=== PATIENT | male | born 1960 | race Two or more races ===

== ENCOUNTER 2024-05-21 19:42 | Inpatient (IN) | payer MEDICAID ==
[~2024-05-21] VITALS: Ht 172.7 cm; Wt 76.6 kg
--- NOTE | 2024-05-21 20:03 | ED.PDOC ---
HPI Comments 63-year-old male came in the emergency room due to chest pains. See history of hypertension, diabetes, dyslipidemia. States for the past 3 days, has been having intermittent episodes of substernal chest pain, sharp, nonradiating, 8/10 intensity.Progressively worsened today. Denies any shortness of breath, nausea or vomiting. Self medicated with aspirin 325 offered no relief of the pain. Chief Complaint: Chest Pain Time Seen by MD: 20:02 Reviewed Notes: Nurses Notes Allergies: Coded Allergies: No Known Drug Allergy (Verified Allergy, Unknown, 05/21/24) Information Source: Patient Mode of Arrival: Ambulatory Severity: Moderate Timing: Days Duration: Intermittent Prehospital treatment: ASA Location: Substernal Radiation: No Radiation Quality: Sharp Onset: With Light Exertion Cardiac Risk Factors: Hyperlipidemia, HTN, Diabetes PE Risk Factors: None History of: None Modifying Factors: Nothing Associated Signs and Symptoms: None Past Medical History PAST MEDICAL HISTORY: DM, High Lipids, HTN Past Medical History (Other): Vertigo Surgical History: Hernia Repair Family History Family History: Reviewed,noncontributory to illness Social History Smoker: Non-Smoker Alcohol: Occasionally Drugs: Denies Drug Use Lives In: Home Constitutional: denies: chills, diaphoresis, fatigue, fever, malaise, sweats, weakness, others EENTM: denies: blurred vision, double vision, ear bleeding, ear discharge, ear drainage, ear pain, ear ringing, eye pain, eye redness, hearing loss, mouth pain, mouth swelling, nasal discharge, nose bleeding, nose congestion, nose pain, photophobia, tearing, throat pain, throat swelling, voice changes, others Respiratory: denies: cough, hemoptysis, orthopnea, SOB at rest, shortness of breath, SOB with excertion, stridor, wheezing, others Cardiovascular: reports: chest pain; denies: dizzy spells, diaphoresis, Dyspnea on exertion, edema, irregular heart beat, left arm pain, lightheadedness, palpitations, PND, syncope, others Gastrointestinal: denies: abdomen distended, abdominal pain, blood streaked bowels, constipated, diarrhea, dysphagia, difficulty swallowing, hematemesis, melena, nausea, poor appetite, poor fluid intake, rectal bleeding, rectal pain, vomiting, others Genitourinary: denies: burning, dysuria, flank pain, frequency, hematuria, incontinence, penile discharge, penile sore, pain, testicle pain, testicle swelling, urgency, others Neurological: denies: dizziness, fainting, headache, left sided numbness, left sided weakness, numbness, paresthesia, pre-existing deficit, right sided numbness, right sided weakness, seizure, speech problems, tingling, tremors, weakness, others Musculoskeletal: denies: back pain, gout, joint pain, joint swelling, muscle pain, muscle stiffness, neck pain, others Integumetry: denies: bruises, change in color, change in hair/nails, dryness, laceration, lesions, lumps, rash, wounds, others Allergic/Immunocompromised: denies: Difficulty Healing, Frequent Infections, Hives, Itching, others Hematologic/Lymphatic: denies: anemia, blood clots, easy bleeding, easy bruising, swollen glands, others Endocrine: denies: excessive hunger, excessive sweating, excessive thirst, excessive urination, flushing, intolerance to cold, intolerance to heat, unexplained weight gain, unexplained weight loss, others Psychiatric: denies: anxiety, bipolar disorder, depression, hopeless, panic disorder, schizophrenia, sleepless, suicidal, others Physical Exam General Appearance: No Apparent Distress, Normal HEENT: Normal ENT Inspection, Pharynx Normal, TMs Normal Neck: Full Range of Motion, Non-Tender, Normal, Normal Inspection Respiratory: Chest Non-Tender, Lungs Clear, No Accessory Muscle Use, No Respiratory Distress, Normal Breath Sounds Cardiovascular: No Edema, No JVD, No Murmur, No Gallop, Normal Peripheral Pulses, Regular Rate/Rhythm Breast Exam: Deferred Gastrointestinal: No Organomegaly, Non Tender, No Pulsatile Mass, Normal Bowel Sounds, Soft Genitalia: Deferred Pelvic: Deferred Rectal: Deferred Extremities: No calf tenderness, Normal capillary refill, Normal inspection, Normal range of motion, Non-tender, No pedal edema Musculoskeletal : Apperance: Normal Neurologic: Alert, hot repairman II-XII nml as Tested, No Motor Deficits, Normal Affect, Normal Mood, No Sensory Deficits Cerebellar Function: Normal Reflexes: Normal Skin: Dry, Normal Color, Warm Lymphatic: No Adenopathy EKG EKG : Pulse Rate (adult): 82 Cardiac Rhythm: NSR Block: RBBB Was a procedure done? Was a procedure done?: No CP Differential Dx Differential Diagnosis: Angina, Anxiety / Panic Attack Differential Diagnosis: Angina, Chest Wall Pain, Costochondritis, Esophageal reflux/spasm, Gastritis, Myocardial Infarction, Pneumonia X-Ray, Labs, Meds, VS Vital Signs Date Time Temp Pulse Resp B/P (MAP) Pulse Ox O2 Delivery O2 Flow Rate FiO2 05/21/24 21:06 74 05/21/24 20:03 82 05/21/24 19:51 82 05/21/24 19:48 97.8 80 20 121/84 (96) 96 Lab Test 05/21/24 21:00 05/21/24 20:00 Range/Units Troponin I High Sensitivity Pending 3 L </=54 ng/L White Blood Count 5.9 4.4-10.8 10^3/uL Red Blood Count 4.97 4.5-5.90 10^6/uL Hemoglobin 15.3 13.5-17.5 g/dL Hematocrit 44.8 41.0-53.0 % Mean Corpuscular Volume 90.1 80.0-100.0 fL Mean Corpuscular Hemoglobin 30.8 28.0-32.0 pg Mean Corpuscular Hemoglobin Concent 34.1 32.0-36.0 g/dL Red Cell Distribution Width 14.4 H 11.8-14.3 % Platelet Count 261 140-450 10^3/uL Mean Platelet Volume 7.3 6.9-10.8 fL Neutrophils (%) (Auto) 37.0 37.0-80.0 % Lymphocytes (%) (Auto) 45.6 10.0-50.0 % Monocytes (%) (Auto) 10.5 0.0-12.0 % Eosinophils (%) (Auto) 5.7 0.0-7.0 % Basophils (%) (Auto) 1.2 0.0-2.0 % Neutrophils # (Auto) 2.2 1.6-8.6 10 ^3/uL Lymphocytes # (Auto) 2.7 0.4-5.4 10 ^3/uL Monocytes # (Auto) 0.6 0-1.3 10 ^3/uL Eosinophils # (Auto) 0.3 0-0.8 10 ^3/uL Basophils # (Auto) 0.1 0-0.2 10 ^3/uL Nucleated Red Blood Cells 0.2 % Sodium Level 141 136-145 mmol/L Potassium Level 4.2 3.5-5.1 mmol/L Chloride Level 104 98-107 mmol/L Carbon Dioxide Level 30 20-31 mmol/L Anion Gap 7 5-15 Blood Urea Nitrogen 18 9-23 mg/dL Creatinine 0.90 0.700-1.30 mg/dL Glomerular Filtration Rate Calc 96 >90 mL/min BUN/Creatinine Ratio 20.0 10.0-20.0 Serum Glucose 160 H 74-106 mg/dL Calcium Level 10.2 8.7-10.4 mg/dL B-Type Natriuretic Peptide 6.26 0-100 pg/mL XY CHEST TWO VIEWS ROUTINE CLINICAL HISTORY: chest pain COMPARISON: None TECHNIQUE: Frontal and lateral view of the chest was obtained FINDINGS: Lines and Tubes: None Lungs: No focal consolidation. Pleura: No effusion. No pneumothorax. Cardiomediastinal contours: Unremarkable Bones: No acute osseous abnormality. IMPRESSION: No acute cardiopulmonary disease. Time of 1ST Reevaluation: 19:58 Reevaluation 1ST: Unchanged Patient Education/Counseling: Diagnosis, Treatment Family Education/Counseling: No Family Present Departure 1 Departure Time of Disposition: 21:34 (Patient presented with chest pain that was con cerning for possible STEMI, ACS, PE, Pneumonia, Muscle Strain, COPD, Dissection. Data: 1. I ordered and reviewed the result of at least 3 labs including a CBC, BMP, and Troponin. 2. I independently interpreted the following tests: EKG which shows right bundle branch block and Chest X-ray which shows benign chest.Risk:This patient has a high risk of morbidity due to further diagnostic testing or treatment and may suffer from an acute cardiac or respiratory disorder. Workup reveals concern for ACS and patient should be admitted for further workup and possible expert consultation. ) Impression: Primary Impression: Acute chest pain Disposition: 09 ADMITTED INPATIENT Admit to: Med Surg Condition: Serious Additional Instructions: Acute chest pain Authorized and Performed by: Andry Moreno MD Total critical care time: Approximately 38 minutes Due to a high probability of clinically significant, life threatening deterioration, the patient required my highest level of preparedness to intervene emergently and I personally spent this critical care time directly and personally managing the patient. This critical care time included obtaining a history; examining the patient; pulse oximetry; ordering and review of studies; arranging urgent treatment with development of a management plan; evaluation of patient's response to treatment; frequent reassessment; and, discussions with other providers. This critical care time was performed to assess and manage the high probability of imminent, life-threatening deterioration that could result in multi-organ failure. It was exclusive of separately billable procedures and treating other patients and teaching time. Please see my other sections and the rest of the note for further information on patient assessment and treatment. Discharged With: Self Critical Care Note Critical Care Time?: Yes (35 min-critical care time only) Critical care comment: Active chest pains Stability Stability form required: No Heart Score Heart Score: Heart Score Response (Comments) Value History Moderate Suspicious 1 EKG Repolarization Disturb 1 Age 45-64 1 Risk Factors >3 or Hx ASHD 2 Troponin Normal limit 0 Total 5 I personally scribed for ANDRY MORENO MD ([facility] on 05/21/24 at 20:03. El ectronically submitted by Mango Haskins ([facility]). I personally scribed for ANDRY MORENO MD ([facility]) on 05/21/24 at 20:03. Electronically submitted by Mango Haskins ([facility]). I personally scribed for ANDRY MORENO MD ([facility] on 05/21/24 at 20:16. Electronically submitted by Mango Haskins ([facility]). ANDRY MORENO MD May 21, 2024 20:03
--- NOTE | 2024-05-21 20:13 | DVH ---
XY CHEST TWO VIEWS ROUTINE CLINICAL HISTORY: chest pain COMPARISON: None TECHNIQUE: Frontal and lateral view of the chest was obtained FINDINGS: Lines and Tubes: None Lungs: No focal consolidation. Pleura: No effusion. No pneumothorax. Cardiomediastinal contours: Unremarkable Bones: No acute osseous abnormality. IMPRESSION: No acute cardiopulmonary disease.
[2024-05-21 20:27] LABS: Basophils # (auto) 0.1 10 ^3/uL (0-0.2); Basophils % (auto) 1.2 % (0.0-2.0); Eosinophils # (auto) 0.3 10 ^3/uL (0-0.8); Eosinophils % (auto) 5.7 % (0.0-7.0); Hematocrit 44.8 % (41.0-53.0); Hemoglobin 15.3 g/dL (13.5-17.5); Lymphocytes # (auto) 2.7 10 ^3/uL (0.4-5.4); Lymphocytes % (auto) 45.6 % (10.0-50.0); Mean Corpuscular Hemoglobin 30.8 pg (28.0-32.0); Mean Corpuscular Hgb Conc. 34.1 g/dL (32.0-36.0); Mean Corpuscular Volume 90.1 fL (80.0-100.0); Monocytes # (auto) 0.6 10 ^3/uL (0-1.3); Monocytes % (auto) 10.5 % (0.0-12.0); Neutrophils # (auto) 2.2 10 ^3/uL (1.6-8.6); Nucleated Red Blood Cells % 0.2 %; Platelet Count (auto) 261 10^3/uL (140-450); Red Blood Cells 4.97 10^6/uL (4.5-5.90); Red Cell Distribution Width 14.4 % (11.8-14.3); White Blood Cell 5.9 10^3/uL (4.4-10.8)
[2024-05-21 20:31] LABS: Chloride 104 mmol/L (98-107); Potassium 4.2 mmol/L (3.5-5.1); Sodium 141 mmol/L (136-145)
[2024-05-21 20:32] LABS: Anion Gap 7 (5-15); Calcium 10.2 mg/dL (8.7-10.4); Carbon Dioxide 30 mmol/L (20-31)
[2024-05-21 20:37] LABS: Blood Urea Nitrogen 18 mg/dL (9-23)
[2024-05-21 20:45] LABS: Glucose 160 mg/dL (74-106)
[2024-05-21] MEDS ORDERED: ACETAMINOPHEN 325 MG TAB PO PRN (22:45)
[2024-05-21] MEDS ORDERED: DEXTROSE (50%) 50ML SYRG IV PRN (22:45)
[2024-05-21] MEDS ORDERED: ONDANSETRON HCL 4 MG/2 ML VIAL IV PRN (22:45)
[2024-05-21] MEDS ORDERED: DOCUSATE SOD 100 MG CAP PO PRN (22:45)
[2024-05-21] MEDS ORDERED: HYDROcodone-ACET 5/325MG TAB PO PRN (22:45)
[2024-05-21] MEDS ORDERED: MORPHINE SULFATE INJ 2 MG/ml SYRG IV PRN ×2 (22:45→23:15)
--- NOTE | 2024-05-21 23:11 | DVHHP2 ---
History of Present Illness Reason for Visit: Chest pain History of Present Illness The patient is a 63-year-old male with past medical history of DM, hyperlipidemia, and hypertension who presented to [facility] ED with complaint of chest pain. Patient reports has been having intermittent substernal chest pain, sharp in nature, nonradiating, rating 8/10 numeric scale, getting worse that prompted this visit. Patient was seen and evaluated in the ED, laboratory data shows WBC 5.9, platelets 261, sodium 141, potassium 4.2, BUN 18, creatinine 0.90, GFR 96, glucose 160, troponin < 3, BNP 6.26. Chest x-ray showed no acute cardiopulmonary disease. Please see medication orders section in the computer. On my assessment, patient denied chest pain at this moment, no headache, no dizziness, no palpitation, no shortness of breath, no nausea, no vomiting, no fever, no chills. Patient was admitted for further evaluation and medical management. Past Medical History DM, High Lipids, HTN, Vertigo Past Surgical History Hernia Repair Family History Reviewed, noncontributory to the management of this case. Past Social History The patient lives at home, denies smoking, alcohol or illicit drugs abuse. Review of Systems Constitutional: No: Fever, Chills, Sweats, Weakness, Malaise, Other Eyes: No: Pain, Vision change, Conjunctivae inflammation, Eyelid inflammation, Other, Redness ENT: No: Ear pain, Ear discharge, Nose pain, Nose discharge, Nose congestion, Mouth pain, Mouth swelling, Throat pain, Throat swelling, Other Respiratory: No: Cough, Dry, Shortness of breath, SOB with excertion, Wheezing, Hemoptysis, Pleuritic Pain, Sputum, Wheezing, Other Cardiovascular: Chest Pain; No: Palpitations, Orthopnea, Paroxysmal Noc. Dyspnea, Edema, Lt Headedness, Other Gastrointestinal: No: Nausea, Vomiting, Abdominal Pain, Diarrhea, Constipation, Melena, Hematochezia, Other Genitourinary: No Dysuria, No Frequency, No Incontinence, No Hematuria, No Retention, No Other Musculoskeletal: No: other, neck pain, shoulder pain, arm pain, back pain, hand pain, leg pain, foot pain Skin: No: Rash, Lesions, Jaundice, Bruising, Other Neurological: No: Weakness, Numbness, Incoordination, Change in speech, Confusion, Seizures, Other Allergies: Coded Allergies: No Known Drug Allergy (Verified Allergy, Unknown, 05/21/24) Medications Current Medications Medications Dose Ordered Sig/Jaz Route Start Time Stop Time Status Last Admin Dose Admin Lisinopril 2.5 mg DAILY PO 05/22/24 10:00 Atorvastatin Calcium 20 mg HS PO 05/22/24 22:00 Diagnostic Test (Pha) 1 strip ACHS 05/22/24 07:00 Insulin Human Regular HS SC 05/22/24 22:00 Insulin Human Regular AC SC 05/22/24 07:00 Dextrose 50 ml UD PRN IV 05/21/24 22:45 Sodium Chloride 10 ml Q8HR IV 05/22/24 06:00 Acetaminophen/ Hydrocodone Bitart 1 tab Q4HP PRN PO 05/21/24 22:45 Ondansetron HCl 4 mg Q4HP PRN IV 05/21/24 22:45 Docusate Sodium 100 mg BIDPRN PRN PO 05/21/24 22:45 Acetaminophen 650 mg Q6HP PRN PO 05/21/24 22:45 Morphine Sulfate 2 mg Q4HPRN PRN IV 05/21/24 22:45 Aspirin 81 mg DAILY PO 05/22/24 10:00 Exam Vital Signs Vital Signs Date Time Temp Pulse Resp B/P (MAP) Pulse Ox O2 Delivery O2 Flow Rate FiO2 05/21/24 23:02 69 05/21/24 19:48 97.8 20 121/84 (96) 96 General Appearance: Alert, Oriented X3, Cooperative, No acute distress HEENT: Atraumatic, PERRLA, EOMI, Mucous membr. moist/pink Respiratory: Clear to auscultation, Normal air movement Cardiovascular: Regular rate, Normal S1, Normal S2, No murmurs Abdominal: Normal bowel sounds, Soft, No tenderness, No hepatospenomegaly, No masses Extremities: No clubbing, No cyanosis, No edema, Normal pulses, No tenderness /swelling Skin: No rashes, No breakdown, No significant lesion Neuro: Normal gait, Normal speech, Strength at 5/5 X4 ext, Normal tone, Sensation intact, Cranial nerves 3-12 NL, Reflexes 2+ Psych/Mental Status: Mental status NL, Mood NL Labs/Xrays Labs Test 05/21/24 21:00 05/21/24 20:00 Range/Units Troponin I High Sensitivity 3 L </=54 ng/L White Blood Count 5.9 4.4-10.8 10^3/uL Red Blood Count 4.97 4.5-5.90 10^6/uL Hemoglobin 15.3 13.5-17.5 g/dL Hematocrit 44.8 41.0-53.0 % Mean Corpuscular Volume 90.1 80.0-100.0 fL Mean Corpuscular Hemoglobin 30.8 28.0-32.0 pg Mean Corpuscular Hemoglobin Concent 34.1 32.0-36.0 g/dL Red Cell Distribution Width 14.4 H 11.8-14.3 % Platelet Count 261 140-450 10^3/uL Mean Platelet Volume 7.3 6.9-10.8 fL Neutrophils (%) (Auto) 37.0 37.0-80.0 % Lymphocytes (%) (Auto) 45.6 10.0-50.0 % Monocytes (%) (Auto) 10.5 0.0-12.0 % Eosinophils (%) (Auto) 5.7 0.0-7.0 % Basophils (%) (Auto) 1.2 0.0-2.0 % Neutrophils # (Auto) 2.2 1.6-8.6 10 ^3/uL Lymphocytes # (Auto) 2.7 0.4-5.4 10 ^3/uL Monocytes # (Auto) 0.6 0-1.3 10 ^3/uL Eosinophils # (Auto) 0.3 0-0.8 10 ^3/uL Basophils # (Auto) 0.1 0-0.2 10 ^3/uL Nucleated Red Blood Cells 0.2 % Sodium Level 141 136-145 mmol/L Potassium Level 4.2 3.5-5.1 mmol/L Chloride Level 104 98-107 mmol/L Carbon Dioxide Level 30 20-31 mmol/L Anion Gap 7 5-15 Blood Urea Nitrogen 18 9-23 mg/dL Creatinine 0.90 0.700-1.30 mg/dL Glomerular Filtration Rate Calc 96 >90 mL/min BUN/Creatinine Ratio 20.0 10.0-20.0 Serum Glucose 160 H 74-106 mg/dL Calcium Level 10.2 8.7-10.4 mg/dL B-Type Natriuretic Peptide 6.26 0-100 pg/mL PATIENT: RADHA BAR ACCT: [id number] UNIT: [id number] : 1960 LOC: ER ROOM / BED: / AGE / SEX: 63 / M ADM STATUS: REG ER SERVICE 55 ORDERING PHYSICIAN: ANDRY SHAH MD PROCEDURE(s): CXR2 - CHEST TWO VIEWS ROUTINE REASON: chest pain ORDER NUMBER(s): [id number], ACCESSION NUMBER(s): [id number] XY CHEST TWO VIEWS ROUTINE CLINICAL HISTORY: chest pain COMPARISON: None TECHNIQUE: Frontal and lateral view of the chest was obtained FINDINGS: Lines and Tubes: None Lungs: No focal consolidation. Pleura: No effusion. No pneumothorax. Cardiomediastinal contours: Unremarkable Bones: No acute osseous abnormality. IMPRESSION: No acute cardiopulmonary disease. Assessment/Plan Assessment/Plan Acute chest pain Plan 1. Admit to telemetry unit 2. Breathing treatment 3. Pain control management 4. Management of fluids and electrolytes 5. Consultation for hospitalist 6. Diagnostic tests chest x-ray 7. DVT prophylaxis-on aspirin 8. Repeat labs CBC, CMP in a.m. 9. Continue with current medical management 10. Treatment plan discussed with patient and RN. Patient verbalized understanding. Plan discussed with: Patient, Other (RN) My Orders Orders - ALEJANDRO CUEVAS DNP Procedure Category Date Status Time Consistent DIET 05/22/24 Transmitted Carb(Ccho)Diabetes Breakfast Lisinopril Tablet PHA 05/22/24 In Process (Zestril Tablet) 10:00 Atorvastatin (Lipitor) PHA 05/22/24 In Process 22:00 Glucose Blood PHA 05/22/24 In Process (Accu-Chek Comfort 07:00 Insulin R (Human) PHA 05/22/24 In Process (Insulin R) 22:00 Insulin R (Human) PHA 05/22/24 In Process (Insulin R) 07:00 Dextrose 50% Syringe PHA 05/21/24 In Process 22:45 Allergies JAQUELINE 05/21/24 In Process 22:33 Code Status CODE 05/21/24 Transmitted 22:33 Sodium Chloride Lock PHA 05/22/24 In Process (Saline Lock Ns) 06:00 Oxygen Per Hour RT 05/21/24 Transmitted 22:33 Hydrocodone-Acet PHA 05/21/24 In Process 5/325mg Tab ([place] 22:45 Ondansetron Hcl PHA 05/21/24 In Process (Zofran) 22:45 Docusate Sodium PHA 05/21/24 In Process Capsule (Colace 22:45 Complete Blood Count LAB 05/22/24 Verified 04:00 Comprehensive LAB 05/22/24 Verified Metabolic Panel 04:00 Condition: Serious JAQUELINE 05/21/24 In Process 22:33 Acetaminophen Tablet PHA 05/21/24 In Process (Tylenol Tablet) 22:45 Bedrest With Bathroom JAQUELINE 05/21/24 In Process Privileg 22:33 Morphine Sulfate PHA 05/21/24 In Process Injection 22:45 Sequential JAQUELINE 05/21/24 In Process Compression Device Aspirin Tablet PHA 05/22/24 In Process 10:00 Problem List: (1) Acute chest pain Date of Service: May 21, 2024 Billing Provider: ALEJANDRO CUEVAS DNP Common Visit Codes: 78770-[id number] INP/OBS CARE (HIGH) ALEJANDRO CUEVAS DNP May 21, 2024 23:11
[2024-05-21] MEDS ORDERED: NITROGLYCERIN 0.4 MG SL TAB SL PRN (23:15)
[2024-05-22 04:11] VITALS: PULSE 78; RESP 23; O2SAT 96
[2024-05-22] MEDS: ACCU-CHEK COMFORT CURVE STRIP VI SCH (06:24)
[2024-05-22] MEDS: SODIUM CHLOR 0.9% PF (SALINE LOCK) 10ML VIAL/SYR IV SCH (06:27)
[2024-05-22] MEDS: InsuLIN REG 1unit/0.01ml Soln (100units/ml) SC SCH (06:29)
[2024-05-22 06:36] LABS: Basophils # (auto) 0.1 10 ^3/uL (0-0.2); Basophils % (auto) 1.3 % (0.0-2.0); Eosinophils # (auto) 0.4 10 ^3/uL (0-0.8); Eosinophils % (auto) 7.8 % (0.0-7.0); Hemoglobin 14.5 g/dL (13.5-17.5); Lymphocytes # (auto) 1.8 10 ^3/uL (0.4-5.4); Lymphocytes % (auto) 36.7 % (10.0-50.0); Mean Corpuscular Hemoglobin 31.1 pg (28.0-32.0); Mean Corpuscular Hgb Conc. 34.5 g/dL (32.0-36.0); Mean Corpuscular Volume 90.3 fL (80.0-100.0); Monocytes # (auto) 0.5 10 ^3/uL (0-1.3); Monocytes % (auto) 10.9 % (0.0-12.0); Neutrophils # (auto) 2.2 10 ^3/uL (1.6-8.6); Neutrophils % (auto) 43.3 % (37.0-80.0); Platelet Count (auto) 243 10^3/uL (140-450); Red Blood Cells 4.65 10^6/uL (4.5-5.90); Red Cell Distribution Width 14.3 % (11.8-14.3)
[2024-05-22 06:55] LABS: Alanine Aminotransferase 24 U/L (7-40); Albumin 4.1 g/dL (3.2-4.8); Alkaline Phosphatase 56 U/L (46-116); Anion Gap 7 (5-15); Aspartate Aminotransferase 15 U/L (13-40); Bilirubin, Total 0.7 mg/dL (0.2-1.0); Blood Urea Nitrogen 16 mg/dL (9-23); Calcium 9.2 mg/dL (8.7-10.4); Carbon Dioxide 28 mmol/L (20-31); Chloride 105 mmol/L (98-107); Potassium 3.9 mmol/L (3.5-5.1); Sodium 140 mmol/L (136-145); Total Protein 6.4 g/dL (5.7-8.2)
[2024-05-22 06:58] LABS: Glucose 160 mg/dL (74-106)
[2024-05-22 08:00] VITALS: PULSE 94; RESP 12; O2SAT 94
--- NOTE | 2024-05-22 09:38 | ECG ---
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
--- NOTE | 2024-05-22 09:38 | ECG ---
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
[2024-05-22] MEDS: ASPirin 81 mg TAB PO SCH (09:59)
[2024-05-22] MEDS: LISINOPRIL 5 MG TAB PO SCH (10:03)
[2024-05-22 10:05] LABS: Cholesterol 169 mg/dL (< 200)
[2024-05-22 10:06] LABS: Triglycerides 140 mg/dL (< 150)
[2024-05-22 10:08] LABS: HDL Cholesterol 50 mg/dL (40-59)
[2024-05-22 10:10] LABS: LDL Cholesterol 110 mg/dL (< 100)
[2024-05-22 10:22] VITALS: BP 130/76; PULSE 81; RESP 16; TEMP 97.6; O2SAT 95
[2024-05-22] MEDS ORDERED: METF-372 PO (11:43)
[2024-05-22] MEDS ORDERED: LOVA10TA54 PO (11:43)
[2024-05-22] MEDS ORDERED: ENAL5TAB22 PO (11:43)
[2024-05-22] MEDS ORDERED: [UNRECOGNIZED DRUG - CODE] PO (11:43)
--- NOTE | 2024-05-22 13:36 | ECG ---
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
--- NOTE | 2024-05-22 13:47 | DVHPNRES ---
Progress Note Date Seen: May 22, 2024 Resident Creating Document: FEDERICA MONTANO RESIDENT Medical Necessity Reason Pt with a Central, PICC or Fol: No Medical Necessity Reason chest pain abnormal EKG Subjective Review of Systems This is a 63-year-old male with past medical history of DM, hyperlipidemia, and hypertension who presented to [facility] ED with complaint of chest pain for the past 2 days. Patient described chest pain as substernal, sharp and intermittent that is nonradiating, and rated 8/10 numeric scale. Pain initially started mild and then increased a day prior to presentation to the ED. Patient denied chest pain at this moment, no headache, no dizziness, no palpitation, no shortness of breath, no nausea, no vomiting, no fever, no chills. In ED, initial vitals revealed temp 97, HR: 80 RR: 20 and BP:120/80. Lab work WBC 5.9, platelets 261, sodium 141, potassium 4.2, BUN 18, creatinine 0.90, GFR 96, glucose 160, troponin < 3, BNP 6.26. Chest x-ray showed no acute cardiopulmonary disease. Twelve lead EKG shows some right bundle branch block. Patient was given nitroglycerin, aspirin, morphine in the ED. his vomit he has no chest pain. Of note, the patient mentioned that about 3-4 years ago, he had similar episode where he presented to [facility] with chest pain that was sharp in nature similar to his current chest pain. Then he did a stress test but not left heart cath. Constitutional: Denies fever no chills no feeling of malaise HEENT: Denies headache, ear pain, ear discharges, conjunctivitis, nasal discharge throat pain Cardiovascular: Denies chest pain, palpitation, orthopnea, PND, or pedal edema Respiratory: Denies shortness of breath, cough cough, sputum production, hemoptysis, GI: Denies abdominal pain, nausea, vomiting, diarrhea, hematemesis, hematochezia, : Denies frequency, urgency, hematuria, Endocrine: Denies unintentional weight gain or weight loss, feeling of hot flashes, Nixon: Denies easy bruising, bleeding disorders, epistaxis Musculoskeletal: Denies joint pains, muscle aches Psych: No evidence of depression, berto, suicidal ideation Objective vital signs Vital Sign Date Time Temp Pulse Resp B/P (MAP) Pulse Ox O2 Delivery O2 Flow Rate FiO2 05/22/24 10:36 Room Air* 0 21 05/22/24 10:22 97.6 81 16 130/76 (64) 95 97.6 medications Current Medications Medications Dose Ordered Sig/Jaz Route Start Time Stop Time Status Last Admin Dose Admin Lisinopril 2.5 mg DAILY PO 05/22/24 10:00 05/22/24 10:03 2.5 MG Atorvastatin Calcium 20 mg HS PO 05/22/24 22:00 Diagnostic Test (Pha) 1 strip ACHS 05/22/24 07:00 05/22/24 11:22 1 STRIP Insulin Human Regular HS SC 05/22/24 22:00 Insulin Human Regular AC SC 05/22/24 07:00 05/22/24 11:32 2 UNITS Dextrose 50 ml UD PRN IV 05/21/24 22:45 Sodium Chloride 10 ml Q8HR IV 05/22/24 06:00 05/22/24 11:25 10 ML Acetaminophen/ Hydrocodone Bitart 1 tab Q4HP PRN PO 05/21/24 22:45 Ondansetron HCl 4 mg Q4HP PRN IV 05/21/24 22:45 Docusate Sodium 100 mg BIDPRN PRN PO 05/21/24 22:45 Acetaminophen 650 mg Q6HP PRN PO 05/21/24 22:45 Morphine Sulfate 2 mg Q4HPRN PRN IV 05/21/24 22:45 Aspirin 81 mg DAILY PO 05/22/24 10:00 05/22/24 09:59 81 MG Nitroglycerin 0.4 mg Q5MINP PRN SL 05/21/24 23:15 Morphine Sulfate 2 mg Q30M PRN IV 05/21/24 23:15 Examination General Appearance: Alert, Oriented X3, Cooperative, No acute distress HEENT: Atraumatic, PERRLA, EOMI, Mucous membrane moist/pink Respiratory: Clear to auscultation, Normal air movement Cardiovascular: Regular rate, Normal S1, Normal S2, No murmurs, no chest wall tenderness Abdominal: NO distention, no tenderness, bowel sounds present, no scars noted Extremities: No clubbing, No cyanosis, No edema, Normal pulses, No tenderness/swelling Skin: No rashes, No breakdown, No significant lesion Neuro: Normal gait, Normal speech, Strength at 5/5 X4 ext, Normal tone, Sensation intact, Cranial nerves 3-12 NL, Reflexes 2+ Psych/Mental Status: Mental status NL, Mood NL laboratory and microbiology Laboratory Tests 05/22/24 06:19 Test 05/22/24 06:19 Range/Units Serum Glucose 160 H 74-106 mg/dL Problem List/Assessment/Plan Problem List/Assessment/Plan Assessment Chest pain rule out ACS EKG abnormality Right bundle branch block Diabetes Hypertension Hyperlipidemia History of chest pain status post stress test ( 2020 [facility]) Plan Echo Moderate sliding scale and daily glucose check Continue lisinopril Continue has aspirin Continue atorvastatin Cardiology consult Code status: Full Goal of care discussed for more than 35 minute Case and plan discharging discussed with Dr. Gonzalez Plan discussed with: Patient My Orders My Orders Orders - FEDERICA MONTANO Procedure Category Date Status Time Drug Screen LAB 05/22/24 Logged 09:40 Urinalysis LAB 05/22/24 Logged 09:40 Echo 2d Mode Cardiac US 05/22/24 Transmitted DOP 13:15 * Cardiology Consult CONS 05/22/24 Transmitted 13:15 FEDERICA MONTANO May 22, 2024 13:47
--- NOTE | 2024-05-22 14:30 | DVHSR ---
APPROVED REPORT EXAM: Two-dimensional and M-mode echocardiogram with Doppler and color Doppler. Blood Pressure: 130/76 mmHg INDICATION Abnormal ECG RISK FACTORS Height: 68, Weight: 168 DIMENSIONS LVDd4.2 (3.8-5.7cm)LA (2D)3.6 (1.9-4.0cm)Aortic Root3.7 (2.0-3.7cm) LVDs2.8 (2.5-4.0cm)LA (MM) (1.9-4.0cm)Aortic Cusp Exc1.9 (1.5-2.0cm) EF (%) 61.0 (55-70%)Rt. Atrium4.4 (1.9-4.0cm)Asc. Aorta cm IVSd1.1 (0.7-1.1cm)RV (D) (1.8-2.4cm) PWd1.1 (0.7-1.1cm) Mitral Valve MitralMitral Stenosis E wave0.68m/sMV Mean GR.mmHg A wave0.72m/sMV Peak GR.mmHg E/A ratio0.92D MVAcm2 DECEL [id number] 1/2 [id number] IVRTmsDop MVA2.32cm2 Aortic Valve Aortic ValveAortic Stenosis V10.95m/Queenie Mean GR.3mmHg V21.14m/Queenie Peak GR.5mmHg LVOT Diameter2.2 (1.8-2.4cm)Doppler AVA3.17cm2 Pulmonic Valve V21.00m/s LEFT VENTRICLE The left ventricle is of normal size. Wall thickness is normal. Ejection fraction is normal and is estimated at 60%. There is no regional wall motion abnormalities. Diastolic function is preserved. E to E prime ratio is in normal range. RIGHT VENTRICLE The right ventricle is mildly dilated in size. Systolic function is normal. ATRIA The left atrium is of normal size. Right atrium is mildly dilated. The intra-atrial septum is not w ell visualized. MITRAL VALVE Normal structure and function. No significant mitral regurgitation. PULMONIC VALVE Likely normal. TRICUSPID VALVE Normal structure and function. There is trace tricuspid regurgitation. PA systolic pressure isn't a dequately estimated. GREAT VESSELS The aortic root is of normal size. Proximal ascending aorta isn't visualized. PERICARDIAL EFFUSION There is no pericardial effusion. IVC is of normal size and collapses normally with inspiration. Conclusion Normal left ventricular size and systolic function. Ejection fraction is estimated at 60%. The right ventricle is mildly dilated in size with normal systolic function. No hemodynamically significant valvular disease. PA systolic pressure isn't adequately estimated.
--- NOTE | 2024-05-22 17:45 | DVHINCON2 ---
Date Seen: May 22, 2024 Referring Physician MD Luiz resident Reason for Consultation Chest pain History of Present Illness This is a 63-year-old male patient who presents to the emergency room with chief complaint of chest pain. The patient reports that the chest pain began approximately three days ago. He describes the chest pain as unprovoked, constant, sharp in nature, left-sided and nonradiating. He denies any aggravating or alleviating factors. At the time of assessment, he denies any chest pain. Cardiology has been consulted for further evaluation. Initial twelve lead electrocardiogram reveals normal sinus rhythm with right bundle branch block. Initial serial troponin levels have been negative. Significant past medical history includes hypertension, dyslipidemia, and type 2 diabetes mellitus. The patient reports having a previous stress test approximately three years ago, in which he states results were negative. He denies following up with Cardiology since then. Past Medical History Past medical history reviewed. No other significant than mentioned above. Past Surgical History Hernia repair Back surgery Family History: Diabetes mellitus 19 CHILD Hypertension G8 MOTHER, Age: 81 Other blood disorders (Thrombosis) G8 FATHER, Age: 84 Family History Family history reviewed. Social History Denies the use of tobacco, alcohol or illicit drugs. Allergies: Coded Allergies: No Known Drug Allergy (Verified Allergy, Unknown, 05/21/24) Home Meds Reported Medications Meclizine HCl (Dramamine) 25 Mg Tab, 25 MG PO, TAB 05/22/24 Enalapril Maleate (Enalapril Maleate) 5 Mg Tab, 1 TAB PO DAILY, #30 TAB 5 Refills 05/22/24 Lovastatin (Lovastatin) 10 Mg Tab, 5 MG PO, TAB 05/22/24 Metformin Hydrochloride (Metformin Hcl) 1,000 Mg Tab, 1000 TAB PO BID, #60 TAB 5 Refills 05/22/24 Home Meds Home medications reviewed. Current Medications Current Medications Medications (Trade) Dose Ordered Sig/Jaz Route PRN Reason Start Time Stop Time Status Last Admin Lisinopril (Zestril Tablet) 2.5 mg DAILY PO 05/22/24 10:00 05/22/24 10:03 Atorvastatin Calcium (Lipitor) 20 mg HS PO 05/22/24 22:00 Diagnostic Test (Pha) (Accu-Chek Comfort Curve T) 1 strip ACHS 05/22/24 07:00 05/22/24 11:22 Insulin Human Regular (InsuLIN R) HS SC 05/22/24 22:00 Insulin Human Regular (InsuLIN R) AC SC 05/22/24 07:00 05/22/24 11:32 Dextrose 50 ml UD PRN IV Blood Sugar LESS THAN 60 05/21/24 22:45 Sodium Chloride (Saline Lock Ns) 10 ml Q8HR IV 05/22/24 06:00 05/22/24 11:25 Acetaminophen/ Hydrocodone Bitart (Blanchard 5/325MG Tab) 1 tab Q4HP PRN PO MODERATE PAIN (4-6 PAIN SCALE) 05/21/24 22:45 Ondansetron HCl (Zofran) 4 mg Q4HP PRN IV NAUSEA / VOMITING 05/21/24 22:45 Docusate Sodium (Colace Capsule) 100 mg BIDPRN PRN PO FOR CONSTIPATION 05/21/24 22:45 Acetaminophen (Tylenol Tablet) 650 mg Q6HP PRN PO PAIN SCALE 1-3 OR TEMP>100.4 05/21/24 22:45 Morphine Sulfate 2 mg Q4HPRN PRN IV SEVERE PAIN (7-10 PAIN SCALE) 05/21/24 22:45 Aspirin 81 mg DAILY PO 05/22/24 10:00 05/22/24 09:59 Nitroglycerin (Ntrostat Sublingual) 0.4 mg Q5MINP PRN SL FOR CHEST PAIN 05/21/24 23:15 Morphine Sulfate 2 mg Q30M PRN IV FOR CHEST PAIN 05/21/24 23:15 Review of Systems Constitutional: No symptom reported Ears, Nose, & Throat: No symptom reported Eyes: No symptom reported Neurological: No symptoms reported Pulmonary/Respiratory: No symptoms reported Cardiovascular: Chest pain Gastrointestinal: No symptom reported Genitourinary: No symptom reported Musculoskeletal: No symptom reported Skin: No symptom reported Psychiatric: No symptom reported Endocrine: No symptom reported Hematologic/Lymphatic: No symptom reported Vital Signs Vital Signs Date Time Temp Pulse Resp B/P (MAP) Pulse Ox O2 Delivery O2 Flow Rate FiO2 05/22/24 10:36 Room Air* 0 21 05/22/24 10:22 97.6 81 16 130/76 (94) 95 97.6 Physical Exam General Appearance: Cooperative. Well-developed. Well-nourished. No acute distress. Pulmonary/Respiratory: Clear, bilateral breaths sounds. Cardiovascular/Chest: Regular rate and rhythm. Peripheral Pulses: 2+ Radial (R). 2+ Radial (L). 2+ Pedal (R). 2+ Pedal (L) Abdominal Exam: Normal bowel sounds. Ankle Exam: Negative ankle edema Lower extremities: Negative lower extremity edema Neuro/Mental Status: A/OX4, coherent. Thoughts/Psych: Normal thought pattern. Appropriate mood and affect. Good judgment and insight. Appearance: No acute distress. Skin Exam: Normal inspection. Normal color. Warm and dry. Labs/Diagnostic Data Labs Test 05/22/24 11:15 05/22/24 06:19 05/21/24 23:00 05/21/24 20:00 Range/Units POC Glucose 148 H 70-106 mg/dl White Blood Count 5.0 4.4-10.8 10^3/uL Red Blood Count 4.65 4.5-5.90 10^6/uL Hemoglobin 14.5 13.5-17.5 g/dL Hematocrit 42.0 41.0-53.0 % Mean Corpuscular Volume 90.3 80.0-100.0 fL Mean Corpuscular Hemoglobin 31.1 28.0-32.0 pg Mean Corpuscular Hemoglobin Concent 34.5 32.0-36.0 g/dL Red Cell Distribution Width 14.3 11.8-14.3 % Platelet Count 243 140-450 10^3/uL Mean Platelet Volume 7.0 6.9-10.8 fL Neutrophils (%) (Auto) 43.3 37.0-80.0 % Lymphocytes (%) (Auto) 36.7 10.0-50.0 % Monocytes (%) (Auto) 10.9 0.0-12.0 % Eosinophils (%) (Auto) 7.8 H 0.0-7.0 % Basophils (%) (Auto) 1.3 0.0-2.0 % Neutrophils # (Auto) 2.2 1.6-8.6 10 ^3/uL Lymphocytes # (Auto) 1.8 0.4-5.4 10 ^3/uL Monocytes # (Auto) 0.5 0-1.3 10 ^3/uL Eosinophils # (Auto) 0.4 0-0.8 10 ^3/uL Basophils # (Auto) 0.1 0-0.2 10 ^3/uL Nucleated Red Blood Cells 0.0 % Sodium Level 140 136-145 mmol/L Potassium Level 3.9 3.5-5.1 mmol/L Chloride Level 105 98-107 mmol/L Carbon Dioxide Level 28 20-31 mmol/L Anion Gap 7 5-15 Blood Urea Nitrogen 16 9-23 mg/dL Creatinine 0.84 0.700-1.30 mg/dL Glomerular Filtration Rate Calc 98 >90 mL/min BUN/Creatinine Ratio 19.0 10.0-20.0 Serum Glucose 160 H 74-106 mg/dL Calcium Level 9.2 8.7-10.4 mg/dL Total Bilirubin 0.7 0.2-1.0 mg/dL Aspartate Amino Transferase (AST) 15 13-40 U/L Alanine Aminotransferase (ALT) 24 7-40 U/L Alkaline Phosphatase 56 46-116 U/L Total Protein 6.4 5.7-8.2 g/dL Albumin 4.1 3.2-4.8 g/dL Triglycerides Level 140 < 150 mg/dL Cholesterol Level 169 < 200 mg/dL LDL Cholesterol 110 H < 100 mg/dL HDL Cholesterol 50 40-59 mg/dL Troponin I High Sensitivity 3 L </=54 ng/L B-Type Natriuretic Peptide 6.26 0-100 pg/mL Assessment Chest pain, rule coronary ischemia Hypertension Dyslipidemia Type 2 diabetes mellitus Plan/Recommendation We will continue with the following plan/recommendations (Dr. Terrazas): The patient was seen and examined at bedside with . A transthoracic echocardiogram reveals EF of 60% with no regional wall motion abnormalities. Given patient's clinical presentation, negative troponin level, and twelve lead electrocardiogram, doubt ACS. Patient to continue with antihypertensive medication regimen as well as lipid-lowering agent. The patient was offered an inpatient stress test, but would prefer outpatient stress test. There is no further inpatient cardiac workup indicated at this time. We will recommend for the patient to follow up with Cardiology in the outpatient setting ideally within 1-2 weeks post discharge. Thank you for allowing us to care for this patient. Please call with any questions or concerns. Critical care time spent: 40 minutes This medical document was created using an electronic medical record system with voice recognition software and computerized dictation system. Although this document has been carefully reviewed, there might still be some phonetic and typographical errors. Occasional wrong-word or ``sound-alike substitutions may have occurred due to the inherent limitations of voice recognition software. These areas are purely typographical due to imperfections of the software programs and do not reflect any compromise in the patient's medical care. Please read the chart carefully and recognize, using context, where these substitutions have occurred. Plan discussed with: Patient NYHA Physical activity limitations: NA Date of Service: May 22, 2024 Billing Provider: KARRI TERRAZAS MD Cardiology Common Codes: 79214-NASLBEW INP/OBS CARE (High) Cardiology Consultation Codes: 24082-[id number] CONSULT <45MIN RUBEN MOTLEY May 22, 2024 17:45
[2024-05-22 17:48] VITALS: BP 103/76; TEMP 36.4
--- NOTE | 2024-05-22 18:59 | DVHDSRES ---
Discharge Summary Date of Admission Resident Creating Document: FEDERICA MONTANO RESIDENT May 21, 2024 at 23:09 Date of Discharge: May 22, 2024 Admitting Diagnosis Chest pain Labs/Diagnostic Data: PATIENT: RADHA BAR ACCT: [id number] UNIT: [id number] : 1960 LOC: ER ROOM / BED: / AGE / SEX: 63 / M ADM STATUS: REG ER SERVICE 55 ORDERING PHYSICIAN: ANDRY SHAH MD PROCEDURE(s): CXR2 - CHEST TWO VIEWS ROUTINE REASON: chest pain ORDER NUMBER(s): [id number], ACCESSION NUMBER(s): [id number] CHEST TWO VIEWS ROUTINE CLINICAL HISTORY: chest pain COMPARISON: None TECHNIQUE: Frontal and lateral view of the chest was obtained FINDINGS: Lines and Tubes: None Lungs: No focal consolidation. Pleura: No effusion. No pneumothorax. Cardiomediastinal contours: Unremarkable Bones: No acute osseous abnormality. IMPRESSION: No acute cardiopulmonary disease. ATED BY: INES GONZALEZ DO DICTATED DATE/TIME: 05/21/242010 Laboratory Results Test 05/22/24 17:35 05/22/24 06:19 05/21/24 23:00 05/21/24 20:00 POC Glucose 149 mg/dl (70-106) White Blood Count 5.0 10^3/uL (4.4-10.8) Red Blood Count 4.65 10^6/uL (4.5-5.90) Hemoglobin 14.5 g/dL (13.5-17.5) Hematocrit 42.0 % (41.0-53.0) Mean Corpuscular Volume 90.3 fL (80.0-100.0) Mean Corpuscular Hemoglobin 31.1 pg (28.0-32.0) Mean Corpuscular Hemoglobin Concent 34.5 g/dL (32.0-36.0) Red Cell Distribution Width 14.3 % (11.8-14.3) Platelet Count 243 10^3/uL (140-450) Mean Platelet Volume 7.0 fL (6.9-10.8) Neutrophils (%) (Auto) 43.3 % (37.0-80.0) Lymphocytes (%) (Auto) 36.7 % (10.0-50.0) Monocytes (%) (Auto) 10.9 % (0.0-12.0) Eosinophils (%) (Auto) 7.8 % (0.0-7.0) Basophils (%) (Auto) 1.3 % (0.0-2.0) Neutrophils # (Auto) 2.2 10 ^3/uL (1.6-8.6) Lymphocytes # (Auto) 1.8 10 ^3/uL (0.4-5.4) Monocytes # (Auto) 0.5 10 ^3/uL (0-1.3) Eosinophils # (Auto) 0.4 10 ^3/uL (0-0.8) Basophils # (Auto) 0.1 10 ^3/uL (0-0.2) Nucleated Red Blood Cells 0.0 % Sodium Level 140 mmol/L (136-145) Potassium Level 3.9 mmol/L (3.5-5.1) Chloride Level 105 mmol/L (98-107) Carbon Dioxide Level 28 mmol/L (20-31) Anion Gap 7 (5-15) Blood Urea Nitrogen 16 mg/dL (9-23) Creatinine 0.84 mg/dL (0.700-1.30) Glomerular Filtration Rate Calc 98 mL/min (>90) BUN/Creatinine Ratio 19.0 (10.0-20.0) Serum Glucose 160 mg/dL (74-106) Calcium Level 9.2 mg/dL (8.7-10.4) Total Bilirubin 0.7 mg/dL (0.2-1.0) Aspartate Amino Transferase (AST) 15 U/L (13-40) Alanine Aminotransferase (ALT) 24 U/L (7-40) Alkaline Phosphatase 56 U/L (46-116) Total Protein 6.4 g/dL (5.7-8.2) Albumin 4.1 g/dL (3.2-4.8) Triglycerides Level 140 mg/dL (< 150) Cholesterol Level 169 mg/dL (< 200) LDL Cholesterol 110 mg/dL (< 100) HDL Cholesterol 50 mg/dL (40-59) Troponin I High Sensitivity 3 ng/L (</=54) B-Type Natriuretic Peptide 6.26 pg/mL (0-100) Other Laboratory Tests 05/22/24 06:19 Brief Hx & Hospital Course: Hospital course This 63-year-old male with past medical history of DM, hyperlipidemia, and hypertension presented to [facility] ED with complaint of chest pain for 2 days. Patient described chest pain as substernal, sharp and intermittent that is nonradiating, and rated 8/10 numeric scale. Pain initially started mild and then increased a day prior to presentation to the ED. In ED, initial vitals revealed temp 97, HR: 80 RR: 20 and BP:120/80. Lab work WBC 5.9, platelets 261, sodium 141, potassium 4.2, BUN 18, creatinine 0.90, GFR 96, glucose 160, troponin < 3, BNP 6.26. Chest x-ray showed no acute cardiopulmonary disease. Twelve lead EKG shows some right bundle branch block. Patient was given nitroglycerin, aspirin, morphine in the ED. At the time of my history taking, patient denied chest pain, no headache, no dizziness, no palpitation, no shortness of breath, no nausea, no vomiting, no fever, no chills. Of note, the patient mentioned that about 3-4 years ago, he had similar episode where he presented to [facility] with chest pain that was sharp in nature similar to his current chest pain. He had stress test and nothing less. Patient was seen by the Cardiology team today and per their assessment, patient is stable and for be discharge, but to follow up at the cardiology for outpatient for a stress test in 1-2 weeks. Examination General Appearance: Alert, Oriented X3, Cooperative, No acute distress HEENT: Atraumatic, PERRLA, EOMI, Mucous membrane moist/pink Respiratory: Clear to auscultation, Normal air movement Cardiovascular: Regular rate, Normal S1, Normal S2, No murmurs, no chest wall tenderness Abdominal: NO distention, no tenderness, bowel sounds present, no scars noted Extremities: No clubbing, No cyanosis, No edema, Normal pulses, No tenderness/swelling Skin: No rashes, No breakdown, No significant lesion Neuro: Normal gait, Normal speech, Strength at 5/5 X4 ext, Normal tone, Sensation intact, Cranial nerves 3-12 NL, Reflexes 2+ Psych/Mental Status: Mental status NL, Mood NL Diagnoses: Chest pain rule out ACS EKG abnormality Right bundle branch block Diabetes Hypertension Hyperlipidemia History of chest pain status post stress test ( 2020 at [facility]) Discharge plan Continue all home medications as is Follow up at the Cardiology Clinic 1-2 weeks for stress test Case discussed with Dr. Gonzalez Consults/Reason for consult Chest pain and abnormal EKG Condition at Discharge: Good Final Diagnosis/Problems List Chest pain rule out ACS EKG abnormality Right bundle branch block Diabetes type II Hypertension Hyperlipidemia History of chest pain status post stress test ( 2020 [facility]) Discharge Disposition: Home Discharge Instruct/Medications Diet: Regular Activity: No Restrictions, As Tolerated Follow Up/Referral: 7 days at the discharge clinic Medications: Continue home mediations Discharge Statement: "Patient was advised to return to the ER or call 911 if any headaches, dizziness, shortness of breath, chest pain, abdominal pain, bleeding, fevers, or worsening of medical condition. Patient was counseled about treatment plan, medications, possible side effects, patientverbalized understanding. All questions were answered to the best of my ability. This discharge took greater then 30 minutes in planning, reviewing documentation, counseling the patient, and discussing with other team members." ASSESSMENT ASSESSMENT Assessment Chest pain rule out ACS EKG abnormality Right bundle branch block Diabetes Hypertension Hyperlipidemia History of chest pain status post stress test ( 2020 [facility]) FEDERICA MONTANO RESIDENT May 22, 2024 18:59
[2024-05-22] MEDS ORDERED: ATORVASTATIN 20 MG TAB PO SCH (22:00)
[2024-05-22] MEDS ORDERED: InsuLIN REG 1unit/0.01ml Soln (100units/ml) SC SCH (22:00)
== END 2024-05-22 19:22 | disposition home or self-care (01) | DRG 198 ==
LOC: ER 19:42 → TELE 23:09 → TELE-CENTR 05-22 10:13
PROVIDERS: ADMIT Nurse Practitioner Family; ATTEND Nurse Practitioner Family
DX: I24.9 Acute ischemic heart disease, unspecified (principal); E11.9 Type 2 diabetes mellitus without complications; E78.5 Hyperlipidemia, unspecified; I10 Essential (primary) hypertension; I45.10 Unspecified right bundle-branch block; Z82.49 Family history of ischemic heart disease and other diseases of the circulatory system; Z83.3 Family history of diabetes mellitus; Z79.84 Long term (current) use of oral hypoglycemic drugs; Z79.899 Other long term (current) drug therapy
CPT/HCPCS: 36415; 71046; 80048; 80053; 80061; 82962; 83880; 84484; 85025; 93005; 93306; 99291; G0378; J1815; J2405

== ENCOUNTER 2024-10-31 12:29 | Emergency (ER) | payer MEDICAID ==
[~2024-10-31] VITALS: Ht 172.7 cm; Wt 74.5 kg
[~2024-10-31 12:29] MED LIST: ENAL5TAB22 PO; LOVA10TA54 PO; METF-372 PO; [UNRECOGNIZED DRUG - CODE] PO
[2024-10-31] MEDS: KETOROLAC TROMETH 60MG/2ML VIAL IM ONE (12:30)
[2024-10-31] MEDS ORDERED: HYDROcodone-ACET 10/325MG TAB PO ONE (12:45)
--- NOTE | 2024-10-31 12:48 | ED.PDOC ---
History of Present Illness HPI Comments 63-year-old male with PMHx HTN, DM, presents with a chief complaint of back pain with associated nausea and vomiting. Patient mentions that his pain is localized to his left hip, radiates down his left leg to the back of his calf. Patient displays symptoms of sciatica. Patient denies any injuries or falls recently. Time Seen by MD: 12:40 Reviewed Notes: Medications, Allergies Allergies: Coded Allergies: No Known Drug Allergy (Verified Allergy, Unknown, 05/21/24) Home Meds Active Scripts Prednisone (Prednisone) 10 Mg Tab, 10 MG PO DAILY for 5 Days, #5 MG Prov:KARMA SUAREZ MD 10/31/24 Reported Medications Meclizine HCl (Dramamine) 25 Mg Tab, 25 MG PO, TAB 05/22/24 Enalapril Maleate (Enalapril Maleate) 5 Mg Tab, 1 TAB PO DAILY, #30 TAB 5 Refills 05/22/24 Lovastatin (Lovastatin) 10 Mg Tab, 5 MG PO, TAB 05/22/24 Metformin Hydrochloride (Metformin Hcl) 1,000 Mg Tab, 1000 TAB PO BID, #60 TAB 5 Refills 05/22/24 Information Source: Patient Mode of Arrival: Ambulatory Severity: Moderate Timing: Days Duration: Since onset Prehospital treatment: None Past Medical History PAST MEDICAL HISTORY: DM, High Lipids, HTN Surgical History: Hernia Repair Family History Family History: Reviewed,noncontributory to illness Social History Smoker: Non-Smoker Alcohol: Occasionally Drugs: Denies Drug Use Lives In: Home Constitutional: denies: chills, diaphoresis, fatigue, fever, malaise, sweats, weakness, others EENTM: denies: blurred vision, double vision, ear bleeding, ear discharge, ear drainage, ear pain, ear ringing, eye pain, eye redness, hearing loss, mouth pain, mouth swelling, nasal discharge, nose bleeding, nose congestion, nose pain, photophobia, tearing, throat pain, throat swelling, voice changes, others Respiratory: denies: cough, hemoptysis, orthopnea, SOB at rest, shortness of breath, SOB with excertion, stridor, wheezing, others Cardiovascular: denies: chest pain, dizzy spells, diaphoresis, Dyspnea on exertion, edema, irregular heart beat, left arm pain, lightheadedness, palpitations, PND, syncope, others Gastrointestinal: denies: abdomen distended, abdominal pain, blood streaked bowels, constipated, diarrhea, dysphagia, difficulty swallowing, hematemesis, melena, nausea, poor appetite, poor fluid intake, rectal bleeding, rectal pain, vomiting, others Genitourinary: denies: burning, dysuria, flank pain, frequency, hematuria, in continence, penile discharge, penile sore, pain, testicle pain, testicle swelling, urgency, others Neurological: denies: dizziness, fainting, headache, left sided numbness, left sided weakness, numbness, paresthesia, pre-existing deficit, right sided numbness, right sided weakness, seizure, speech problems, tingling, tremors, weakness, others Musculoskeletal: reports: back pain; denies: gout, joint pain, joint swelling, muscle pain, muscle stiffness, neck pain, others Integumetry: denies: bruises, change in color, change in hair/nails, dryness, laceration, lesions, lumps, rash, wounds, others Allergic/Immunocompromised: denies: Difficulty Healing, Frequent Infections, Hives, Itching, others Hematologic/Lymphatic: denies: anemia, blood clots, easy bleeding, easy bruising, swollen glands, others Endocrine: denies: excessive hunger, excessive sweating, excessive thirst, excessive urination, flushing, intolerance to cold, intolerance to heat, unexplained weight gain, unexplained weight loss, others Psychiatric: denies: anxiety, bipolar disorder, depression, hopeless, panic disorder, schizophrenia, sleepless, suicidal, others All Other Systems: Reviewed and Negative Physical Exam General Appearance: Moderate Distress, Normal HEENT: Normal ENT Inspection, Pharynx Normal, TMs Normal Neck: Full Range of Motion, Non-Tender, Normal, Normal Inspection Respiratory: Chest Non-Tender, Lungs Clear, No Accessory Muscle Use, No Respiratory Distress, Normal Breath Sounds Cardiovascular: No Edema, No JVD, No Murmur, No Gallop, Normal Peripheral Pulses, Regular Rate/Rhythm Breast Exam: Deferred Gastrointestinal: No Organomegaly, Non Tender, No Pulsatile Mass, Normal Bowel Sounds, Soft Genitalia: Deferred Pelvic: Deferred Rectal: Deferred Extremities: No calf tenderness, Normal capillary refill, Normal inspection, Normal range of motion, Non-tender, No pedal edema Musculoskeletal : Apperance: Normal 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 Was a procedure done?: No Differential Dx Considerations may include: Degenerative disc disease Musculoskeletal pain X-Ray, Labs, Meds, VS Vital Signs Date Time Temp Pulse Resp B/P (MAP) Pulse Ox O2 Delivery O2 Flow Rate FiO2 10/31/24 13:08 98.2 99 18 118/93 (101) 97 98.2 Patient alert. Complaining of back pain. Vitals stable. Answering all questions. Was given Toradol. Was given Dent. X-ray reviewed does not show any acute changes. Was given prescription of prednisone. Was told to follow up with his primary care physician. Was told to come back if there is any problem. Time of 1ST Reevaluation: 13:10 Reevaluation 1ST: Unchanged Patient Education/Counseling: Diagnosis, Treatment, Need For Follow Up Family Education/Counseling: No Family Present SEPSIS Sepsis Screen Physician Orders Lumbar Spine 4+ View (10/31/24 12:43) Vital Signs Date Time Temp Pulse Resp B/P (MAP) Pulse Ox O2 Delivery O2 Flow Rate FiO2 10/31/24 13:08 98.2 99 18 118/93 (101) 97 98.2 Departure 1 Departure Time of Disposition: 12:59 Impression: Primary Impression: Degenerative disc disease Qualified Codes: M51.369 - Other intervertebral disc degeneration, lumbar region without mention of lumbar back pain or lower extremity pain Disposition: 01 HOME / SELF CARE / HOMELESS Condition: Good e-Prescriptions Prednisone (Prednisone) 10 Mg Tab 10 MG PO DAILY for 5 Days, #5 MG Prov: KARMA SUAREZ MD 10/31/24 Discharged With: Self Critical Care Note Critical Care Time?: No Stability Stability form required: No Heart Score Heart Score: Heart Score Response (Comments) Value History N/A 0 EKG N/A 0 Age N/A 0 Risk Factors N/A 0 Troponin N/A 0 Total 0 I personally scribed for KARMA SUAREZ MD ([email or web address]) on 10/31/24 at 12:48. Electronically submitted by Anastacio Brooks ([email or web address]). KARMA SUAREZ MD Oct 31, 2024 12:48
[2024-10-31] MEDS ORDERED: PRED10TA PO (13:00)
--- NOTE | 2024-10-31 13:28 | DVH ---
INDICATION: rediculopathy TECHNIQUE: 4 views of the lumbar spine were obtained. COMPARISON: None FINDINGS: There is straightening of the normal lumbar lordosis. 2 mm retrolisthesis of L4 on L5. Moderately sev ere disc space narrowing at the L4-5 level. No acute fracture. Normal sacroiliac joints. No lytic or blastic changes. Moderate multilevel degenerative disc disease. IMPRESSION: 1. No acute fracture
[2024-10-31 14:01] VITALS: BP 103/72; PULSE 92; RESP 18; TEMP 98.3; O2SAT 96
== END 2024-10-31 14:28 | disposition home or self-care (01) ==
LOC: ER 12:29
DX: M51.369 Other intervertebral disc degeneration, lumbar region without mention of lumbar back pain or lower extremity pain (principal); F10.90 Alcohol use, unspecified, uncomplicated; E11.9 Type 2 diabetes mellitus without complications; E78.5 Hyperlipidemia, unspecified; I10 Essential (primary) hypertension; Z98.890 Other specified postprocedural states; Z79.899 Other long term (current) drug therapy; Z79.84 Long term (current) use of oral hypoglycemic drugs; Z79.52 Long term (current) use of systemic steroids; Y90.9 Presence of alcohol in blood, level not specified
CPT/HCPCS: 72110; 96372; 99283; J1885